=== PATIENT | male | born 1955 | race African-American/Black ===

== ENCOUNTER 2020-05-23 02:15 | Emergency (ER) | payer BC, OTHER ==
[~2020-05-23] VITALS: Ht 188 cm; Wt 119.0 kg
[2020-05-23] MEDS ORDERED: ASPIRIN 81MG TABLET PO ONE (02:30)
[2020-05-23] MEDS ORDERED: NITROGLYCERIN 0.4MG TABLET SL SL PRN (02:30)
[2020-05-23] MEDS ORDERED: CLONIDINE 0.3MG TABLET PO ONE (03:00)
[2020-05-23 03:48] LABS: BASOPHILS % 0.6 % (0.0-2.0); HEMATOCRIT. 51.8 % (42.0-52.0); HEMOGLOBIN. 17.5 g/dL (14.0-18.0); LYMPHOCYTES % 24.9 % (20.0-50.0); MEAN CORPUSCULAR HEMOGLOBIN 32.2 pg (28.0-32.0); MEAN CORPUSCULAR VOLUME 95.2 fL (80.0-94.0); MEAN PLATELET VOLUME 9.1 fl (7.4-10.4); NEUTROPHILS % 63.5 % (40.0-76.0); PLATELET 206 x1000/uL (130-400); RED BLOOD CELL COUNT 5.44 mill/uL (4.7-6.1); RED CELL DISTRIBUTION WIDTH 14.7 % (11.6-14.6)
[2020-05-23 03:50] LABS: CHLORIDE 105 mEq/L (98-107)
[2020-05-23 03:52] LABS: INR 1.1; PROTHROMBIN TIME 11.1 sec (9.6-11.0)
[2020-05-23 04:00] VITALS: BP 141/85
[2020-05-23] MEDS ORDERED: CLON1PAT11 TP (11:43)
[2020-05-24] MEDS ORDERED: CLOP75TA15 PO (09:17)
[2020-05-24] MEDS ORDERED: LIP40 PO (09:17)
[2020-05-24] MEDS ORDERED: ASPI-1160 PO (09:17)
== END 2020-05-23 04:15 | disposition left against medical advice (07) ==
LOC: ER 02:15
DX: I10 Essential (primary) hypertension (principal); I51.7 Cardiomegaly; R07.89 Other chest pain
CPT/HCPCS: 36415; 71045; 80053; 83880; 84484; 85025; 85610; 85730; 93005; 99285; Z7610

== ENCOUNTER 2020-05-23 04:30 | Inpatient (IN) | payer OTHER ==
[2020-05-23] VITALS (9 sets, daily range): BP systolic 117–152; BP diastolic 58–94
[~2020-05-23] VITALS: Ht 190.5 cm; Wt 138.8 kg
[2020-05-23] MEDS ORDERED: ENOXAPARIN 120MG/0.8ML SYR SUBCUT SCH (05:15)
[2020-05-23] MEDS ORDERED: ACETAMINOPHEN 325MG TABLET PO PRN (09:00)
[2020-05-23] MEDS ORDERED: ONDANSETRON HCL 4MG/2ML INJ IV PRN (09:00)
[2020-05-23] MEDS: METOPROLOL TARTRATE 25MG TABLET PO SCH ×2 (10:05→21:03)
[2020-05-23] MEDS: ASPIRIN 81MG TABLET PO SCH (10:05)
[2020-05-23] MEDS ORDERED: LIDOCAINE HCL 1% 20ML VIAL (Pyxis) INJ ONE (10:48)
[2020-05-23] MEDS ORDERED: FENTANYL CITRATE/PF 50MCG/ML 2ML VIAL ONE (10:48)
[2020-05-23] MEDS ORDERED: MIDAZOLAM HCL 2 MG/2 ML VIAL ONE (10:48)
[2020-05-23] MEDS ORDERED: IODIXANOL 320MG/ML 100 ML BOTTLE IV ONE ×2 (10:49→12:27)
[2020-05-23] MEDS ORDERED: CLON1PAT11 TP (11:43)
[2020-05-23] MEDS ORDERED: IOHEXOL-300 100 ML BOTTLE ONE (12:24)
[2020-05-23] MEDS ORDERED: HEPARIN SODIUM 1,000 UNIT/1ML VIAL IV ONE (12:49)
[2020-05-23] MEDS ORDERED: CLOPIDOGREL 75MG TABLET ONE (12:58)
[2020-05-23] MEDS ORDERED: ASPIRIN 325MG TABLET ONE (12:59)
[2020-05-23 13:27] LABS: *BENZODIAZEPINES SCREEN URINE NEGATIVE (NEGATIVE); *COCAINE SCREEN URINE NEGATIVE (NEGATIVE); METHADONE URINE SCREEN NEGATIVE (NEGATIVE)
[2020-05-23 13:28] LABS: *AMPHETAMINES SCREEN URINE NEGATIVE (NEGATIVE); *BARBITURATES SCREEN URINE NEGATIVE (NEGATIVE); CANNABINOID URINE SCREEN NEGATIVE (NEGATIVE); OPIATES URINE SCREEN NEGATIVE (NEGATIVE); PHENCYCLIDINE URINE SCREEN NEGATIVE (NEGATIVE)
[2020-05-23] MEDS ORDERED: SODIUM CHL 0.45% + KCL 20MEQ/L 1,000 ML IV SCH (14:00)
[2020-05-23] MEDS ORDERED: ATORVASTATIN CALCIUM 40MG TABLET PO SCH (21:00)
[2020-05-24] VITALS: BP 145/66
[2020-05-24 02:00] VITALS: BP 121/87
[2020-05-24 04:00] VITALS: BP 127/80
[2020-05-24 06:00] VITALS: BP 139/85
[2020-05-24 06:50] LABS: BASOPHILS % 0.3 % (0.0-2.0); EOSINOPHILS % 2.8 % (0.0-5.0); HEMATOCRIT. 52.3 % (42.0-52.0); HEMOGLOBIN. 17.6 g/dL (14.0-18.0); LYMPHOCYTES % 17.2 % (20.0-50.0); MEAN CORPUSCULAR HEMOGLOBIN 31.8 pg (28.0-32.0); MEAN CORPUSCULAR VOLUME 94.7 fL (80.0-94.0); MEAN PLATELET VOLUME 8.7 fl (7.4-10.4); MONOCYTES % 8.6 % (2.0-8.0); NEUTROPHILS % 71.1 % (40.0-76.0); PLATELET 200 x1000/uL (130-400); RED BLOOD CELL COUNT 5.53 mill/uL (4.7-6.1); RED CELL DISTRIBUTION WIDTH 14.6 % (11.6-14.6)
[2020-05-24 07:02] LABS: CHLORIDE 105 mEq/L (98-107)
[2020-05-24 07:44] VITALS: BP 138/85
[2020-05-24 08:00] VITALS: BP 138/85
[2020-05-24] MEDS: METOPROLOL TARTRATE 25MG TABLET PO SCH (08:32)
[2020-05-24] MEDS: ASPIRIN 81MG TABLET PO SCH (08:32)
[2020-05-24] MEDS ORDERED: CLOPIDOGREL 75MG TABLET PO SCH (09:00)
[2020-05-24] MEDS ORDERED: ASPI-1160 PO (09:17)
[2020-05-24] MEDS ORDERED: LIP40 PO (09:17)
[2020-05-24] MEDS ORDERED: CLOP75TA15 PO (09:17)
== END 2020-05-24 09:00 | disposition home or self-care (01) | DRG 246 ==
LOC: ER 04:30 → EEVIPCON 05:14 → 3WST 05:14 → ENRESERV 05:36
PROVIDERS: ADMIT Internal Medicine; ATTEND Internal Medicine
PROC: 027235Z Dilation of Coronary Artery, Three Arteries with Two Drug-eluting Intraluminal Devices, Percutaneous Approach (ICD-10-PCS; principal; 2020-05-23)
PROC: 4A023N7 Measurement of Cardiac Sampling and Pressure, Left Heart, Percutaneous Approach (ICD-10-PCS; 2020-05-23)
PROC: B2111ZZ Fluoroscopy of Multiple Coronary Arteries using Low Osmolar Contrast (ICD-10-PCS; 2020-05-23)
PROC: B2151ZZ Fluoroscopy of Left Heart using Low Osmolar Contrast (ICD-10-PCS; 2020-05-23)
DX: I21.4 Non-ST elevation (NSTEMI) myocardial infarction (principal); J96.00 Acute respiratory failure, unspecified whether with hypoxia or hypercapnia; E66.9 Obesity, unspecified; I10 Essential (primary) hypertension; E78.5 Hyperlipidemia, unspecified; M19.90 Unspecified osteoarthritis, unspecified site; I25.10 Atherosclerotic heart disease of native coronary artery without angina pectoris; Z68.32 Body mass index [BMI] 32.0-32.9, adult; Z82.49 Family history of ischemic heart disease and other diseases of the circulatory system; Z79.899 Other long term (current) drug therapy
CPT/HCPCS: 36415; 80048; 80061; 80305; 84443; 84484; 85025; 85347; 92928; 92929; 93005; 93306; 93458; 99291; C1725; C1769; C1874; C1887; C1893; J1644; J1650; J2250; J3010; J3480; J3490; Q9967

== ENCOUNTER 2021-06-13 03:11 | Emergency (ER) | payer OTHER, BC ==
[~2021-06-13] VITALS: Ht 190.5 cm; Wt 116.0 kg
[~2021-06-13 03:11] MED LIST: ASPI-1160 PO; CLON1PAT11 TP; CLOP75TA15 PO; LIP40 PO
[2021-06-13] MEDS ORDERED: FUROSEMIDE 40MG/4ML VIAL IVP ONE (04:00)
[2021-06-13 04:13] LABS: BASOPHILS % 0.7 % (0.0-2.0); EOSINOPHILS % 4.8 % (0.0-5.0); HEMATOCRIT. 52.2 % (42.0-52.0); HEMOGLOBIN. 17.8 g/dL (14.0-18.0); LYMPHOCYTES % 12.7 % (20.0-50.0); MEAN CORPUSCULAR HEMOGLOBIN 30.9 pg (28.0-32.0); MEAN CORPUSCULAR VOLUME 90.9 fL (80.0-94.0); MEAN PLATELET VOLUME 8.8 fl (7.4-10.4); MONOCYTES % 6.9 % (2.0-8.0); NEUTROPHILS % 74.9 % (40.0-76.0); PLATELET 278 x1000/uL (130-400); RED BLOOD CELL COUNT 5.74 mill/uL (4.7-6.1); RED CELL DISTRIBUTION WIDTH 15.4 % (11.6-14.6)
[2021-06-13 04:22] LABS: CHLORIDE 110 mEq/L (98-107)
[2021-06-13] MEDS ORDERED: POTA10CA42 MT (05:09)
[2021-06-13] MEDS ORDERED: FURO-151 MT (05:09)
[2021-06-13 05:10] VITALS: BP 133/89
== END 2021-06-13 05:28 | disposition home or self-care (01) ==
LOC: ER 03:11
DX: I50.9 Heart failure, unspecified (principal); Z79.899 Other long term (current) drug therapy
CPT/HCPCS: 36415; 71045; 80053; 83880; 84484; 85025; 93005; 96374; 99285; J1940

== ENCOUNTER 2021-06-22 04:35 | Emergency (ER) | payer OTHER, BC ==
[~2021-06-22] VITALS: Ht 190.5 cm; Wt 117.9 kg
[~2021-06-22 04:35] MED LIST changes: +FURO-151 MT; +POTA10CA42 MT
[2021-06-22 05:00] VITALS: BP 156/90
[2021-06-22] MEDS ORDERED: FUROSEMIDE 40MG/4ML VIAL IVP ONE (05:15)
[2021-06-22 05:18] LABS: BASOPHILS % 1.1 % (0.0-2.0); EOSINOPHILS % 5.3 % (0.0-5.0); HEMATOCRIT. 35.8 % (42.0-52.0); HEMOGLOBIN. 11.7 g/dL (14.0-18.0); LYMPHOCYTES % 29.6 % (20.0-50.0); MEAN CORPUSCULAR HEMOGLOBIN 24.6 pg (28.0-32.0); MEAN CORPUSCULAR VOLUME 74.9 fL (80.0-94.0); MEAN PLATELET VOLUME 7.9 fl (7.4-10.4); MONOCYTES % 11.8 % (2.0-8.0); NEUTROPHILS % 52.2 % (40.0-76.0); PLATELET 221 x1000/uL (130-400); RED BLOOD CELL COUNT 4.77 mill/uL (4.7-6.1); RED CELL DISTRIBUTION WIDTH 15.8 % (11.6-14.6)
[2021-06-22 05:26] LABS: CHLORIDE 111 mEq/L (98-107)
== END 2021-06-22 05:37 | disposition home or self-care (01) ==
LOC: ER 04:38
DX: I50.9 Heart failure, unspecified (principal); I42.9 Cardiomyopathy, unspecified; J45.909 Unspecified asthma, uncomplicated; Z79.82 Long term (current) use of aspirin
CPT/HCPCS: 36415; 80053; 83735; 83880; 84484; 85025; 96374; 99283; J1940

== ENCOUNTER 2021-09-03 11:27 | Emergency (ER) | payer OTHER, BC ==
[~2021-09-03] VITALS: Ht 190.5 cm; Wt 109.0 kg
[2021-09-03] MEDS ORDERED: FUROSEMIDE 40MG/4ML VIAL IVP ONE (11:45)
[2021-09-03 11:58] LABS: BASOPHILS % 0.6 % (0.0-2.0); EOSINOPHILS % 3.4 % (0.0-5.0); HEMATOCRIT. 46.6 % (42.0-52.0); HEMOGLOBIN. 15.4 g/dL (14.0-18.0); MEAN CORPUSCULAR HEMOGLOBIN 29.1 pg (28.0-32.0); MEAN CORPUSCULAR VOLUME 87.9 fL (80.0-94.0); MONOCYTES % 5.2 % (2.0-8.0); NEUTROPHILS % 81.8 % (40.0-76.0); PLATELET 349 x1000/uL (130-400); RED CELL DISTRIBUTION WIDTH 17.5 % (11.6-14.6)
[2021-09-03 12:05] LABS: CHLORIDE 108 mEq/L (98-107)
[2021-09-03 13:40] VITALS: BP 121/73
== END 2021-09-03 14:36 | disposition home or self-care (01) ==
LOC: ER 11:41 → EEVIPCON 11:41 → ER 14:36
DX: I50.9 Heart failure, unspecified (principal); R79.89 Other specified abnormal findings of blood chemistry; N17.9 Acute kidney failure, unspecified; I11.0 Hypertensive heart disease with heart failure; I25.10 Atherosclerotic heart disease of native coronary artery without angina pectoris; Z79.899 Other long term (current) drug therapy
CPT/HCPCS: 36415; 80053; 83880; 84484; 85025; 93005; 96374; 99284; J1940; 71045

== ENCOUNTER 2021-09-25 04:29 | Emergency (ER) | payer OTHER, BC ==
[2021-09-25 06:09] LABS: BASOPHILS % 0.3 % (0.0-2.0); EOSINOPHILS % 4.4 % (0.0-5.0); HEMATOCRIT. 46.9 % (42.0-52.0); LYMPHOCYTES % 18.3 % (20.0-50.0); MEAN CORPUSCULAR HEMOGLOBIN 28.5 pg (28.0-32.0); MEAN CORPUSCULAR VOLUME 88.9 fL (80.0-94.0); MEAN PLATELET VOLUME 8.4 fl (7.4-10.4); MONOCYTES % 5.7 % (2.0-8.0); NEUTROPHILS % 71.3 % (40.0-76.0); PLATELET 387 x1000/uL (130-400); RED BLOOD CELL COUNT 5.28 mill/uL (4.7-6.1)
[2021-09-25] MEDS ORDERED: FUROSEMIDE 40MG/4ML VIAL IVP ONE (06:15)
[2021-09-25 06:45] VITALS: BP 109/63
== END 2021-09-26 06:52 | disposition left against medical advice (07) ==
LOC: ER 04:29
DX: I11.0 Hypertensive heart disease with heart failure (principal); I50.9 Heart failure, unspecified; I25.10 Atherosclerotic heart disease of native coronary artery without angina pectoris; J45.909 Unspecified asthma, uncomplicated; E78.5 Hyperlipidemia, unspecified; Z98.890 Other specified postprocedural states; Z79.899 Other long term (current) drug therapy
CPT/HCPCS: 36415; 71045; 80048; 83880; 84484; 85025; 96374; 99284; J1940; Z7610

== ENCOUNTER 2021-10-01 07:47 | Emergency (ER) | payer OTHER, BC ==
[~2021-10-01] VITALS: Ht 190.5 cm; Wt 242.0 kg
[2021-10-01] MEDS ORDERED: FUROSEMIDE 40MG/4ML VIAL IV ONE (08:15)
[2021-10-01 08:32] LABS: BASOPHILS % 0.5 % (0.0-2.0); EOSINOPHILS % 3.1 % (0.0-5.0); HEMATOCRIT. 45.3 % (42.0-52.0); HEMOGLOBIN. 15.1 g/dL (14.0-18.0); LYMPHOCYTES % 15.4 % (20.0-50.0); MEAN CORPUSCULAR HEMOGLOBIN 29.2 pg (28.0-32.0); MEAN CORPUSCULAR VOLUME 87.3 fL (80.0-94.0); MEAN PLATELET VOLUME 9.2 fl (7.4-10.4); MONOCYTES % 7.4 % (2.0-8.0); NEUTROPHILS % 73.6 % (40.0-76.0); PLATELET 361 x1000/uL (130-400); RED BLOOD CELL COUNT 5.18 mill/uL (4.7-6.1); RED CELL DISTRIBUTION WIDTH 17.9 % (11.6-14.6)
[2021-10-01 08:41] VITALS: BP 115/77
== END 2021-10-01 08:43 | disposition left against medical advice (07) ==
LOC: ER 07:57
DX: R68.89 Other general symptoms and signs (principal); I11.0 Hypertensive heart disease with heart failure; I50.9 Heart failure, unspecified; I25.10 Atherosclerotic heart disease of native coronary artery without angina pectoris; J45.909 Unspecified asthma, uncomplicated; Z79.899 Other long term (current) drug therapy
CPT/HCPCS: 36415; 85025; 96374; 99283; J1940

== ENCOUNTER 2021-12-06 03:11 | Emergency (ER) | payer OTHER, BC ==
[~2021-12-06] VITALS: Ht 190.5 cm; Wt 109.0 kg
[2021-12-06 04:55] VITALS: BP 144/98
[2021-12-06 05:21] LABS: BASOPHILS % 0.9 % (0.0-2.0); EOSINOPHILS % 7.2 % (0.0-5.0); HEMATOCRIT. 51.5 % (42.0-52.0); HEMOGLOBIN. 16.7 g/dL (14.0-18.0); LYMPHOCYTES % 14.9 % (20.0-50.0); MEAN CORPUSCULAR HEMOGLOBIN 28.1 pg (28.0-32.0); MEAN CORPUSCULAR VOLUME 86.7 fL (80.0-94.0); MEAN PLATELET VOLUME 9.1 fl (7.4-10.4); MONOCYTES % 8.9 % (2.0-8.0); NEUTROPHILS % 68.1 % (40.0-76.0); PLATELET 274 x1000/uL (130-400); RED BLOOD CELL COUNT 5.94 mill/uL (4.7-6.1); RED CELL DISTRIBUTION WIDTH 17.1 % (11.6-14.6)
[2021-12-06 05:31] LABS: CHLORIDE 107 mEq/L (98-107)
[2021-12-06] MEDS ORDERED: FUROSEMIDE 100MG/10ML VIAL IVP ONE (05:45)
[2021-12-06] MEDS ORDERED: FURO-151 MT (05:51)
== END 2021-12-06 05:40 | disposition home or self-care (01) ==
LOC: ER 03:11
DX: I11.0 Hypertensive heart disease with heart failure (principal); I50.9 Heart failure, unspecified; R06.02 Shortness of breath; Z98.62 Peripheral vascular angioplasty status
CPT/HCPCS: 36415; 71045; 80053; 83880; 84484; 85025; 93005; 96374; 99285; J1940

== ENCOUNTER 2022-10-02 18:17 | Inpatient (IN) | payer OTHER, BC ==
[~2022-10-02] VITALS: Ht 190.5 cm; Wt 123.4 kg
[2022-10-02 18:49] LABS: BASOPHILS % 1.1 % (0.0-2.0); EOSINOPHILS % 3.8 % (0.0-5.0); HEMATOCRIT. 38.9 % (42.0-52.0); HEMOGLOBIN. 12.6 g/dL (14.0-18.0); LYMPHOCYTES % 14.3 % (20.0-50.0); MEAN CORPUSCULAR HEMOGLOBIN 24.1 pg (28.0-32.0); MEAN PLATELET VOLUME 8.9 fl (7.4-10.4); MONOCYTES % 8.1 % (2.0-8.0); NEUTROPHILS % 72.7 % (40.0-76.0); PLATELET 452 x1000/uL (130-400); RED BLOOD CELL COUNT 5.25 mill/uL (4.7-6.1)
[2022-10-02 18:55] LABS: CHLORIDE 100 mEq/L (98-107)
[2022-10-02 19:16] LABS: PLATELET ESTIMATE INCREASED
[2022-10-02] MEDS ORDERED: FUROSEMIDE 40MG/4ML VIAL IVP ONE (20:30)
[2022-10-02] MEDS ORDERED: ASPIRIN 325MG TABLET PO ONE (21:00)
[2022-10-03 02:45] VITALS: BP 113/78
[2022-10-03 04:00] VITALS: BP 123/76
[2022-10-03] MEDS ORDERED: ACETAMINOPHEN 325MG TABLET PO PRN (04:30)
[2022-10-03] MEDS ORDERED: HYDROCODONE/ACETAMINOPHEN 5/325MG TABLET PO PRN (04:30)
[2022-10-03] MEDS ORDERED: ONDANSETRON HCL 4MG/2ML INJ IV PRN (04:30)
[2022-10-03] MEDS ORDERED: CLONIDINE 0.1MG TABLET PO PRN (04:30)
[2022-10-03 08:00] VITALS: BP 114/78
[2022-10-03] MEDS ORDERED: ASPIRIN 81MG TABLET PO SCH (09:00)
[2022-10-03 10:22] LABS: BASOPHILS % 0.8 % (0.0-2.0); EOSINOPHILS % 5.3 % (0.0-5.0); HEMATOCRIT. 37.3 % (42.0-52.0); HEMOGLOBIN. 12.1 g/dL (14.0-18.0); LYMPHOCYTES % 14.6 % (20.0-50.0); MEAN CORPUSCULAR HEMOGLOBIN 24.3 pg (28.0-32.0); MEAN CORPUSCULAR VOLUME 74.7 fL (80.0-94.0); MEAN PLATELET VOLUME 9.4 fl (7.4-10.4); MONOCYTES % 8.4 % (2.0-8.0); NEUTROPHILS % 70.9 % (40.0-76.0); PLATELET 433 x1000/uL (130-400); RED BLOOD CELL COUNT 4.99 mill/uL (4.7-6.1); RED CELL DISTRIBUTION WIDTH 21.7 % (11.6-14.6)
[2022-10-03 11:16] LABS: CREATINE KINASE MB FRACTION 5.2 ng/mL (0.5-3.6)
[2022-10-03 12:00] VITALS: BP 124/86
[2022-10-03] MEDS ORDERED: FUROSEMIDE 40MG/4ML VIAL IVP SCH (12:30)
[2022-10-03] MEDS ORDERED: CLOPIDOGREL 75MG TABLET PO SCH (12:30)
[2022-10-03 16:37] LABS: CLARITY URINE CLEAR (CLEAR); COLOR URINE YELLOW (YELLOW); KETONES URINE NEGATIVE (NEGATIVE); LEUKOCYTE ESTERASE URINE 1+ (NEGATIVE); NITRITE URINE NEGATIVE (NEGATIVE); OCCULT BLOOD URINE 2+ (NEGATIVE); PH URINE 7.5 (4.5-8.0); PROTEIN URINE 1+ (NEGATIVE); SPECIFIC GRAVITY URINE 1.008 (1.005-1.030)
[2022-10-03 17:06] LABS: *AMPHETAMINES SCREEN URINE NEGATIVE (NEGATIVE); *BARBITURATES SCREEN URINE NEGATIVE (NEGATIVE); *BENZODIAZEPINES SCREEN URINE NEGATIVE (NEGATIVE); *COCAINE SCREEN URINE NEGATIVE (NEGATIVE); CANNABINOID URINE SCREEN NEGATIVE (NEGATIVE); METHADONE URINE SCREEN NEGATIVE (NEGATIVE); OPIATES URINE SCREEN NEGATIVE (NEGATIVE); PHENCYCLIDINE URINE SCREEN NEGATIVE (NEGATIVE)
[2022-10-03] MEDS ORDERED: ATORVASTATIN CALCIUM 40MG TABLET PO SCH (21:00)
[2022-10-04 16:48] LABS: HAPTOGLOBIN 334 mg/dL (30-200); TOTAL IRON BINDING CAPACITY 409 ug/dL (250-450)
[2022-10-04 16:58] LABS: PROSTRATE SPECIFIC AG TOTAL 3.76 ng/mL (0.0-4.0)
== END 2022-10-03 16:35 | disposition left against medical advice (07) | DRG 280 ==
LOC: EEVIPCON 18:17 → ER 18:17 → MICUSO 22:13 → EDBEDREQTM 22:19 → EDBEDREQ 22:19 → 8WST 10-03 01:04
PROVIDERS: ADMIT Internal Medicine; ATTEND Internal Medicine
DX: I13.0 Hypertensive heart and chronic kidney disease with heart failure and stage 1 through stage 4 chronic kidney disease, or unspecified chronic kidney disease (principal); I21.A1 Myocardial infarction type 2; I50.43 Acute on chronic combined systolic (congestive) and diastolic (congestive) heart failure; N17.9 Acute kidney failure, unspecified; M79.89 Other specified soft tissue disorders; E78.5 Hyperlipidemia, unspecified; R74.01 Elevation of levels of liver transaminase levels; I25.10 Atherosclerotic heart disease of native coronary artery without angina pectoris; G89.29 Other chronic pain; M54.50 Low back pain, unspecified; Z20.822 Contact with and (suspected) exposure to COVID-19; N18.30 Chronic kidney disease, stage 3 unspecified; Z79.82 Long term (current) use of aspirin; Z79.899 Other long term (current) drug therapy; Z79.84 Long term (current) use of oral hypoglycemic drugs; Z82.49 Family history of ischemic heart disease and other diseases of the circulatory system; Z95.5 Presence of coronary angioplasty implant and graft; Z86.73 Personal history of transient ischemic attack (TIA), and cerebral infarction without residual deficits
CPT/HCPCS: 36415; 71045; 80048; 80053; 80305; 81003; 82550; 82553; 82570; 82728; 83010; 83540; 83550; 83880; 84153; 84156; 84484; 85025; 87426; 93005; 99291; J1940; G0103

== ENCOUNTER 2023-12-18 16:25 | Emergency (ER) | payer OTHER, BC ==
[~2023-12-18] VITALS: Ht 190.5 cm; Wt 117.0 kg
[~2023-12-18 16:25] MED LIST changes: -POTA10CA42 MT; +POTA10CA83 MT
[2023-12-18 16:27] VITALS: O2SAT 100
[2023-12-18] MEDS: FUROSEMIDE 40MG/4ML VIAL IVP ONE (16:44)
[2023-12-18 16:52] VITALS: BP 115/75; PULSE 82; RESP 18; TEMP 98.4
== END 2023-12-18 17:07 | disposition left against medical advice (07) ==
LOC: ER 16:25
DX: I50.9 Heart failure, unspecified (principal); I11.0 Hypertensive heart disease with heart failure; I25.2 Old myocardial infarction; Z98.890 Other specified postprocedural states; Z96.653 Presence of artificial knee joint, bilateral
CPT/HCPCS: 99283; 96374; J1940

== ENCOUNTER 2023-12-27 15:15 | Inpatient (IN) | payer OTHER, BC ==
[~2023-12-27] VITALS: Ht 190.5 cm; Wt 118.6 kg
[2023-12-27 16:00] LABS: BASOPHILS % 0.6 % (0.0-2.0); EOSINOPHILS % 6.7 % (0.0-5.0); HEMATOCRIT. 36.5 % (42.0-52.0); HEMOGLOBIN. 11.9 g/dL (14.0-18.0); LYMPHOCYTES % 12.4 % (20.0-50.0); MEAN CORPUSCULAR HEMOGLOBIN 28.1 pg (28.0-32.0); MEAN CORPUSCULAR HGB CONC 32.7 g/dL (31.0-37.0); MEAN CORPUSCULAR VOLUME 86.1 fL (80.0-94.0); MEAN PLATELET VOLUME 8.3 fl (7.4-10.4); MONOCYTES % 6.5 % (2.0-8.0); NEUTROPHILS % 73.8 % (40.0-76.0); PLATELET 350 x1000/uL (130-400); RED BLOOD CELL COUNT 4.24 mill/uL (4.7-6.1); RED CELL DISTRIBUTION WIDTH 18.2 % (11.6-14.6)
[2023-12-27 16:09] LABS: ALANINE AMINOTRANSFERASE 34 IU/L (10-49); ALBUMIN 3.7 g/dL (3.2-4.8); ASPARTATE AMINOTRANSFERASE 124 IU/L (<34); BILIRUBIN TOTAL 0.5 mg/dL (0.1-1.0); CALCIUM 8.4 mg/dL (8.7-10.4); CARBON DIOXIDE 27 mEq/L (21-32); CHLORIDE 109 mEq/L (98-107); CREATININE 1.4 mg/dL (0.6-1.3); GLUCOSE 112 mg/dL (70-105); POTASSIUM 3.3 mEq/L (3.5-5.1); PROTEIN TOTAL 6.4 g/dL (6.0-8.3); SODIUM 143 mEq/L (136-145); UREA NITROGEN BLOOD 17 mg/dL (9-23)
[2023-12-27 16:11] LABS: TROPONIN I HIGH SENSITIVITY 939 ng/L (3.0-53)
[2023-12-27] MEDS ORDERED: ASPIRIN 325MG EC TABLET PO NR (16:30)
[2023-12-27] MEDS ORDERED: ENOXAPARIN 120MG/0.8ML SYR SUBCUT NR (16:30)
[2023-12-27 16:33] LABS: INR 1.1; PROTHROMBIN TIME 11.8 sec (9.6-11.0)
[2023-12-27] MEDS: ENOXAPARIN 120MG/0.8ML SYR SUBCUT SCH (16:56)
[2023-12-27] MEDS ORDERED: HEPARIN 25,000 UNITS PREMIX 250 ML IV SCH (17:00)
[2023-12-27] MEDS: ASPIRIN 81MG TABLET PO ONE (17:09)
[2023-12-27] MEDS ORDERED: HEPARIN BOLUS PRN aPTT <30 IV (17:45)
[2023-12-27] MEDS: HEPARIN 60 UNITS/KG BOLUS IV NR (18:37)
[2023-12-27] MEDS: HEPARIN 25,000 UNITS PREMIX 250 ML IV SCH (18:37)
[2023-12-27] MEDS: FUROSEMIDE 40MG/4ML VIAL IVP ONE (19:40)
[2023-12-28 03:40] VITALS: BP 135/91; PULSE 74; RESP 21; TEMP 98.3
[2023-12-28 03:43] VITALS: BP 135/91; PULSE 82; RESP 21; TEMP 98.3
[2023-12-28] MEDS: HEPARIN BOLUS PRN aPTT 30-44 IV (04:11)
[2023-12-28 07:14] LABS: BASOPHILS % 0.9 % (0.0-2.0); EOSINOPHILS % 11.1 % (0.0-5.0); HEMATOCRIT. 36.7 % (42.0-52.0); LYMPHOCYTES % 24.6 % (20.0-50.0); MEAN CORPUSCULAR HEMOGLOBIN 27.6 pg (28.0-32.0); MEAN CORPUSCULAR HGB CONC 32.7 g/dL (31.0-37.0); MEAN CORPUSCULAR VOLUME 84.4 fL (80.0-94.0); MEAN PLATELET VOLUME 8.4 fl (7.4-10.4); NEUTROPHILS % 55.4 % (40.0-76.0); PLATELET 317 x1000/uL (130-400); RED BLOOD CELL COUNT 4.35 mill/uL (4.7-6.1); RED CELL DISTRIBUTION WIDTH 18.7 % (11.6-14.6); WHITE BLOOD COUNT 7.5 x1000/uL (4.5-11.0)
[2023-12-28 08:00] VITALS: BP 130/95; PULSE 84; RESP 20; TEMP 98.4
[2023-12-28 08:02] LABS: CLARITY URINE CLEAR (CLEAR); COLOR URINE YELLOW (YELLOW); GLUCOSE URINE 3+ (NEGATIVE); KETONES URINE NEGATIVE (NEGATIVE); LEUKOCYTE ESTERASE URINE NEGATIVE (NEGATIVE); NITRITE URINE NEGATIVE (NEGATIVE); OCCULT BLOOD URINE TRACE (NEGATIVE); PH URINE 6.5 (4.5-8.0); PROTEIN URINE 1+ (NEGATIVE); SPECIFIC GRAVITY URINE 1.028 (1.005-1.030)
[2023-12-28 08:16] LABS: TROPONIN I HIGH SENSITIVITY 871 ng/L (3.0-53)
[2023-12-28 08:24] LABS: BACTERIA URINE FEW; SQUAMOUS EPITHELIAL CELL URINE NONE SEEN /lpf (RARE/1+); YEAST URINE NONE SEEN
[2023-12-28] MEDS: ASPIRIN 81MG TABLET PO SCH (08:26)
[2023-12-28] MEDS: TICAGRELOR 90 MG TABLET PO SCH (08:26)
[2023-12-28] MEDS: ISOSORBIDE MONONITRATE 30MG TABLET SR 24HR PO SCH (08:26)
[2023-12-28] MEDS: FUROSEMIDE 40MG TABLET PO SCH (08:27)
[2023-12-28] MEDS: METOPROLOL SUCCINATE 50MG ER TABLET PO SCH (08:27)
[2023-12-28 08:35] LABS: ALANINE AMINOTRANSFERASE 27 IU/L (10-49); ALBUMIN 3.4 g/dL (3.2-4.8); ASPARTATE AMINOTRANSFERASE 86 IU/L (<34); BILIRUBIN TOTAL 0.5 mg/dL (0.1-1.0); CARBON DIOXIDE 28 mEq/L (21-32); CHLORIDE 109 mEq/L (98-107); CREATINE KINASE 1621 IU/L (46-171); CREATINE KINASE MB FRACTION 2.3 ng/mL (0.5-3.6); CREATININE 1.3 mg/dL (0.6-1.3); GLUCOSE 95 mg/dL (70-105); POTASSIUM 3.3 mEq/L (3.5-5.1); PROTEIN TOTAL 6.1 g/dL (6.0-8.3); SODIUM 144 mEq/L (136-145); UREA NITROGEN BLOOD 19 mg/dL (9-23)
[2023-12-28] MEDS ORDERED: NITR0.4T49 SL (08:50)
[2023-12-28] MEDS ORDERED: TICA90TA PO (08:50)
[2023-12-28] MEDS ORDERED: METO-396 PO (08:50)
[2023-12-28] MEDS ORDERED: ISOS30TA91 PO (08:50)
[2023-12-28] MEDS ORDERED: DAPA5TAB PO (08:50)
[2023-12-28] MEDS ORDERED: SACU1TAB PO (08:50)
[2023-12-28] MEDS ORDERED: ALFU10TA9 PO (08:50)
[2023-12-28] MEDS ORDERED: FARXIGA 5 MG PO SCH (09:00)
[2023-12-28] MEDS ORDERED: ENTRESTO PO SCH (09:00)
[2023-12-28 09:51] LABS: *AMPHETAMINES SCREEN URINE NEGATIVE (NEGATIVE); *BARBITURATES SCREEN URINE NEGATIVE (NEGATIVE); *BENZODIAZEPINES SCREEN URINE NEGATIVE (NEGATIVE); *COCAINE SCREEN URINE NEGATIVE (NEGATIVE); CANNABINOID URINE SCREEN NEGATIVE (NEGATIVE); ECSTASY MDMA SCREEN URINE NEGATIVE (NEGATIVE); METHADONE URINE SCREEN Neg (NEGATIVE); OPIATES URINE SCREEN NEGATIVE (NEGATIVE); PHENCYCLIDINE URINE SCREEN NEGATIVE (NEGATIVE)
[2023-12-28 12:00] VITALS: BP 105/76; PULSE 74; RESP 18; TEMP 98
[2023-12-28 16:00] VITALS: BP 123/86; PULSE 81; RESP 17; TEMP 98.5
[2023-12-28 16:21] LABS: CREATININE URINE RANDOM 33.7 mg/dL
[2023-12-28] MEDS: EMPAGLIFLOZIN 10MG TABLET PO SCH (18:05)
[2023-12-28] MEDS: SACUBITRIL/VALSARTAN 24MG/26MG TABLET PO SCH (18:05)
[2023-12-28 20:00] VITALS: BP 119/75; PULSE 75; RESP 21; TEMP 97.6
[2023-12-28] MEDS: ATORVASTATIN CALCIUM 40MG TABLET PO SCH (20:53)
[2023-12-29 00:30] VITALS: BP 124/82; PULSE 72; RESP 15; TEMP 98.6
[2023-12-29] MEDS: ZOLPIDEM TARTRATE 5MG TABLET PO PRN (00:46)
[2023-12-29 05:29] VITALS: BP 114/89; PULSE 74; RESP 25; TEMP 97.6
[2023-12-29 07:20] LABS: BASOPHILS % 0.7 % (0.0-2.0); EOSINOPHILS % 8.6 % (0.0-5.0); HEMATOCRIT. 39.3 % (42.0-52.0); HEMOGLOBIN. 12.8 g/dL (14.0-18.0); LYMPHOCYTES % 17.4 % (20.0-50.0); MEAN CORPUSCULAR HEMOGLOBIN 27.7 pg (28.0-32.0); MEAN CORPUSCULAR HGB CONC 32.5 g/dL (31.0-37.0); MEAN CORPUSCULAR VOLUME 85.1 fL (80.0-94.0); MEAN PLATELET VOLUME 8.8 fl (7.4-10.4); MONOCYTES % 7.3 % (2.0-8.0); PLATELET 315 x1000/uL (130-400); RED BLOOD CELL COUNT 4.62 mill/uL (4.7-6.1); RED CELL DISTRIBUTION WIDTH 18.7 % (11.6-14.6); WHITE BLOOD COUNT 7.7 x1000/uL (4.5-11.0)
[2023-12-29 07:32] LABS: CALCIUM 8.6 mg/dL (8.7-10.4); CARBON DIOXIDE 28 mEq/L (21-32); CHLORIDE 106 mEq/L (98-107); CREATININE 1.3 mg/dL (0.6-1.3); GLUCOSE 76 mg/dL (70-105); PHOSPHORUS 2.6 mg/dL (2.5-4.9); POTASSIUM 3.3 mEq/L (3.5-5.1); SODIUM 143 mEq/L (136-145); UREA NITROGEN BLOOD 21 mg/dL (9-23)
[2023-12-29 08:00] VITALS: BP 119/88; PULSE 74; RESP 22; TEMP 98
[2023-12-29] MEDS: POTASSIUM CHLORIDE 20MEQ/PACKET PO NR (08:38)
[2023-12-29 13:26] VITALS: BP 114/89; PULSE 74; TEMP 98; O2SAT 97
[2023-12-29] MEDS: FUROSEMIDE 40MG/4ML VIAL IVP NR (13:46)
[2023-12-31 13:12] LABS: *CREATININE RANDOM URINE 36.1 mg/dL (Not Estab.); MICROALBUMIN RANDOM URINE 29.6 ug/mL (Not Estab.)
== END 2023-12-29 14:06 | disposition home or self-care (01) | DRG 280 ==
LOC: ER 15:15 → EDBEDREQSVC 12-28 02:17 → 3WST 12-28 03:43
PROVIDERS: ADMIT Internal Medicine; ATTEND Internal Medicine
DX: I21.4 Non-ST elevation (NSTEMI) myocardial infarction (principal); I50.43 Acute on chronic combined systolic (congestive) and diastolic (congestive) heart failure; I13.0 Hypertensive heart and chronic kidney disease with heart failure and stage 1 through stage 4 chronic kidney disease, or unspecified chronic kidney disease; M62.82 Rhabdomyolysis; I42.0 Dilated cardiomyopathy; I25.10 Atherosclerotic heart disease of native coronary artery without angina pectoris; E78.5 Hyperlipidemia, unspecified; N28.1 Cyst of kidney, acquired; N18.2 Chronic kidney disease, stage 2 (mild); I34.0 Nonrheumatic mitral (valve) insufficiency; G89.29 Other chronic pain; Z96.652 Presence of left artificial knee joint; Z86.73 Personal history of transient ischemic attack (TIA), and cerebral infarction without residual deficits; Z82.49 Family history of ischemic heart disease and other diseases of the circulatory system; Z79.899 Other long term (current) drug therapy; Z79.82 Long term (current) use of aspirin; Z79.02 Long term (current) use of antithrombotics/antiplatelets; Z95.5 Presence of coronary angioplasty implant and graft
CPT/HCPCS: 36415; 71045; 71275; 76770; 80048; 80053; 80305; 81003; 82043; 82088; 82550; 82553; 82570; 83735; 83880; 83935; 84100; 84244; 84300; 84484; 85025; 93005; 93306; 93970; 99291; J1644; J1650; J1940; J8499

== ENCOUNTER 2024-03-03 07:35 | Emergency (ER) | payer OTHER, BC ==
[~2024-03-03] VITALS: Ht 185.4 cm; Wt 244.0 kg
[~2024-03-03 07:35] MED LIST changes: +ALFU10TA9 PO; +DAPA5TAB PO; +ISOS30TA91 PO; +METO-396 PO; +NITR0.4T49 SL; +SACU1TAB PO; +TICA90TA PO
[2024-03-03 07:38] VITALS: O2SAT 98
[2024-03-03 08:00] VITALS: BP 119/82; PULSE 70; RESP 18; TEMP 98
[2024-03-03] MEDS: FUROSEMIDE 40MG/4ML VIAL IVP ONE (08:08)
[2024-03-03 08:15] LABS: BASOPHILS % 0.8 % (0.0-2.0); EOSINOPHILS % 3.9 % (0.0-5.0); HEMATOCRIT. 47.1 % (42.0-52.0); HEMOGLOBIN. 15.3 g/dL (14.0-18.0); LYMPHOCYTES % 18.9 % (20.0-50.0); MEAN CORPUSCULAR HEMOGLOBIN 27.7 pg (28.0-32.0); MEAN CORPUSCULAR HGB CONC 32.5 g/dL (31.0-37.0); MEAN CORPUSCULAR VOLUME 85.2 fL (80.0-94.0); MEAN PLATELET VOLUME 8.1 fl (7.4-10.4); MONOCYTES % 8.3 % (2.0-8.0); NEUTROPHILS % 68.1 % (40.0-76.0); PLATELET 219 x1000/uL (130-400); RED BLOOD CELL COUNT 5.53 mill/uL (4.7-6.1); RED CELL DISTRIBUTION WIDTH 20.8 % (11.6-14.6); WHITE BLOOD COUNT 8.4 x1000/uL (4.5-11.0)
[2024-03-03 08:23] LABS: CHLORIDE 106 mEq/L (98-107); POTASSIUM 4.2 mEq/L (3.5-5.1); SODIUM 141 mEq/L (136-145)
[2024-03-03 08:24] LABS: CALCIUM 9.6 mg/dL (8.7-10.4); CARBON DIOXIDE 30 mEq/L (21-32)
[2024-03-03 08:29] LABS: CREATININE 1.5 mg/dL (0.6-1.3); GLUCOSE 105 mg/dL (70-105); UREA NITROGEN BLOOD 22 mg/dL (9-23)
[2024-03-03 08:57] LABS: TROPONIN I HIGH SENSITIVITY 204 ng/L (3.0-53)
== END 2024-03-03 08:25 | disposition left against medical advice (07) ==
LOC: ER 07:35
DX: R79.89 Other specified abnormal findings of blood chemistry (principal); I50.9 Heart failure, unspecified; N18.6 End stage renal disease
CPT/HCPCS: 80048; 83880; 85025; 84484; 36415; 71045; 93005; 96374; 99285; J1940; Z7610 ×3

== ENCOUNTER 2024-08-19 10:46 | Emergency (ER) | payer BC, OTHER ==
[~2024-08-19 10:46] MED LIST changes: +ALFU10TA46 PO; -ALFU10TA9 PO; -POTA10CA83 MT; +POTA10CA93 MT
[2024-08-19 15:21] LABS: CHLORIDE 108 mEq/L (98-107); SODIUM 142 mEq/L (136-145)
[2024-08-19 15:22] LABS: BASOPHILS % 0.6 % (0.0-2.0); CALCIUM 9.4 mg/dL (8.7-10.4); CARBON DIOXIDE 28 mEq/L (21-32); EOSINOPHILS % 3.4 % (0.0-5.0); HEMATOCRIT. 48.9 % (42.0-52.0); HEMOGLOBIN. 16.2 g/dL (14.0-18.0); LYMPHOCYTES % 16.5 % (20.0-50.0); MEAN CORPUSCULAR HEMOGLOBIN 31.3 pg (28.0-32.0); MEAN CORPUSCULAR HGB CONC 33.1 g/dL (31.0-37.0); MEAN CORPUSCULAR VOLUME 94.7 fL (80.0-94.0); MEAN PLATELET VOLUME 8.7 fl (7.4-10.4); MONOCYTES % 7.5 % (2.0-8.0); PLATELET 239 x1000/uL (130-400); RED BLOOD CELL COUNT 5.17 mill/uL (4.7-6.1); RED CELL DISTRIBUTION WIDTH 15.5 % (11.6-14.6); WHITE BLOOD COUNT 7.2 x1000/uL (4.5-11.0)
[2024-08-19 15:27] LABS: CREATININE 1.2 mg/dL (0.6-1.3); GLUCOSE 126 mg/dL (70-105); UREA NITROGEN BLOOD 18 mg/dL (9-23)
[2024-08-19] MEDS: FUROSEMIDE 40MG/4ML VIAL IVP NR (15:32)
[2024-08-19 15:38] LABS: TROPONIN I HIGH SENSITIVITY 250 ng/L (3.0-53)
[2024-08-19 16:20] VITALS: BP 132/96; PULSE 83; RESP 18; TEMP 36.78072; O2SAT 99
== END 2024-08-19 16:22 | disposition home or self-care (01) ==
LOC: EDSTATUS 10:46 → ER 11:25 → CANBEDREQ 16:13 → ER 16:22
DX: R06.02 Shortness of breath (principal); I50.9 Heart failure, unspecified; I25.10 Atherosclerotic heart disease of native coronary artery without angina pectoris; Z79.899 Other long term (current) drug therapy
CPT/HCPCS: 80048; 83880; 85025; 84484; 36415; 71045; 93005; 96374; 99285; J1940; Z7610 ×4

== ENCOUNTER 2024-11-26 09:13 | Emergency (ER) | payer BC ==
[~2024-11-26] VITALS: Ht 182.9 cm; Wt 90.0 kg
[2024-11-26 09:17] VITALS: O2SAT 99
[2024-11-26] MEDS: FUROSEMIDE 40MG/4ML VIAL IVP ONE (09:57)
[2024-11-26 10:25] LABS: CLARITY URINE CLEAR (CLEAR); COLOR URINE YELLOW (YELLOW); GLUCOSE URINE NEGATIVE (NEGATIVE); KETONES URINE NEGATIVE (NEGATIVE); LEUKOCYTE ESTERASE URINE TRACE (NEGATIVE); NITRITE URINE NEGATIVE (NEGATIVE); OCCULT BLOOD URINE 2+ (NEGATIVE); PH URINE 6.5 (4.5-8.0); PROTEIN URINE 2+ (NEGATIVE); SPECIFIC GRAVITY URINE 1.013 (1.005-1.030)
[2024-11-26 10:35] LABS: TROPONIN I HIGH SENSITIVITY 633 ng/L (3.0-53)
[2024-11-26 10:46] LABS: BACTERIA URINE FEW; SQUAMOUS EPITHELIAL CELL URINE RARE /lpf (RARE/1+); YEAST URINE NONE SEEN
[2024-11-26 11:02] LABS: POTASSIUM 5.5 mEq/L (3.5-5.1)
[2024-11-26 11:03] LABS: CALCIUM 9.4 mg/dL (8.7-10.4)
[2024-11-26 11:12] LABS: CREATININE 1.7 mg/dL (0.6-1.3)
[2024-11-26 11:14] LABS: BASOPHILS % 0.2 % (0.0-2.0); EOSINOPHILS % 3.9 % (0.0-5.0); HEMATOCRIT. 52.2 % (42.0-52.0); HEMOGLOBIN. 16.7 g/dL (14.0-18.0); LYMPHOCYTES % 14.5 % (20.0-50.0); MEAN CORPUSCULAR HEMOGLOBIN 28.2 pg (28.0-32.0); MEAN CORPUSCULAR HGB CONC 31.9 g/dL (31.0-37.0); MEAN CORPUSCULAR VOLUME 88.2 fL (80.0-94.0); MEAN PLATELET VOLUME 9.2 fl (7.4-10.4); MONOCYTES % 7.8 % (2.0-8.0); NEUTROPHILS % 73.6 % (40.0-76.0); PLATELET 247 x1000/uL (130-400); RED BLOOD CELL COUNT 5.92 mill/uL (4.7-6.1); RED CELL DISTRIBUTION WIDTH 17.8 % (11.6-14.6); WHITE BLOOD COUNT 9.4 x1000/uL (4.5-11.0)
[2024-11-26 11:35] VITALS: BP 142/93; PULSE 99; RESP 18; TEMP 36.7; O2SAT 98
[2024-11-26 12:28] LABS: INR 1.1; PROTHROMBIN TIME 11.6 sec (9.6-11.0)
== END 2024-11-26 11:20 | disposition left against medical advice (07) ==
LOC: ER 09:13
DX: I21.4 Non-ST elevation (NSTEMI) myocardial infarction (principal); N17.9 Acute kidney failure, unspecified; I50.9 Heart failure, unspecified; Z79.02 Long term (current) use of antithrombotics/antiplatelets; Z79.82 Long term (current) use of aspirin; Z79.84 Long term (current) use of oral hypoglycemic drugs; Z79.899 Other long term (current) drug therapy
CPT/HCPCS: 80048; 81003; 85025; 85610; 87086; 84484; 36415; 71045; 93005; 96374; 99285; J1940; Z7610; A4606

== ENCOUNTER 2024-12-18 13:15 | Emergency (ER) | payer BC ==
[~2024-12-18] VITALS: Ht 188 cm; Wt 125.0 kg
[2024-12-18 13:29] VITALS: O2SAT 99
[2024-12-18] MEDS: FUROSEMIDE 100MG/10ML VIAL IVP ONE (13:44)
[2024-12-18 13:49] LABS: BASOPHILS % 0.4 % (0.0-2.0); DIFFERENTIAL COMMENT 0; EOSINOPHILS % 0.4 % (0.0-5.0); HEMATOCRIT. 48.4 % (42.0-52.0); HEMOGLOBIN. 15.5 g/dL (14.0-18.0); MEAN CORPUSCULAR HEMOGLOBIN 27.9 pg (28.0-32.0); MEAN CORPUSCULAR VOLUME 87.1 fL (80.0-94.0); MEAN PLATELET VOLUME 9.3 fl (7.4-10.4); MONOCYTES % 6.5 % (2.0-8.0); NEUTROPHILS % 77.7 % (40.0-76.0); PLATELET 281 x1000/uL (130-400); RED BLOOD CELL COUNT 5.56 mill/uL (4.7-6.1); RED CELL DISTRIBUTION WIDTH 18.1 % (11.6-14.6); WHITE BLOOD COUNT 12.3 x1000/uL (4.5-11.0)
[2024-12-18 14:03] LABS: CHLORIDE 106 mEq/L (98-107); POTASSIUM 4.6 mEq/L (3.5-5.1); SODIUM 141 mEq/L (136-145)
[2024-12-18 14:04] LABS: CALCIUM 8.8 mg/dL (8.7-10.4); CARBON DIOXIDE 26 mEq/L (21-32)
[2024-12-18 14:06] VITALS: PULSE 91; RESP 24
[2024-12-18] MEDS: ALBUTEROL (0.083%) 2.5MG/3ML NEB HHN ONE (14:06)
[2024-12-18 14:09] LABS: CREATININE 1.6 mg/dL (0.6-1.3); GLUCOSE 108 mg/dL (70-105); UREA NITROGEN BLOOD 22 mg/dL (9-23)
[2024-12-18 14:15] LABS: TROPONIN I HIGH SENSITIVITY 1442 ng/L (3.0-53)
[2024-12-18 14:41] VITALS: BP 121/78; PULSE 79; RESP 18; TEMP 36.9; O2SAT 100
== END 2024-12-18 14:42 | disposition left against medical advice (07) ==
LOC: ER 13:15
DX: I21.4 Non-ST elevation (NSTEMI) myocardial infarction (principal); I50.9 Heart failure, unspecified; Z79.899 Other long term (current) drug therapy
CPT/HCPCS: 80048; 83880; 85025; 84484; 36415; 71045; 94640; 93005; 96374; 99285; J1940; Z7610 ×4; A4606

== ENCOUNTER 2025-03-24 05:33 | Inpatient (IN) | payer BC ==
[~2025-03-24] VITALS: Ht 185.4 cm; Wt 121.6 kg
[2025-03-24 06:44] LABS: BASOPHILS % 0.6 % (0.0-2.0); EOSINOPHILS % 4.8 % (0.0-5.0); HEMATOCRIT. 51.0 % (42.0-52.0); HEMOGLOBIN. 16.3 g/dL (14.0-18.0); LYMPHOCYTES % 14.3 % (20.0-50.0); MEAN PLATELET VOLUME 8.9 fl (7.4-10.4); MONOCYTES % 9.9 % (2.0-8.0); NEUTROPHILS % 70.4 % (40.0-76.0); PLATELET 245 x1000/uL (130-400); RED BLOOD CELL COUNT 5.95 mill/uL (4.7-6.1); RED CELL DISTRIBUTION WIDTH 20.0 % (11.6-14.6)
[2025-03-24] MEDS: MORPHINE SULFATE 4 MG/ML INJ (FOR IV/IM USE) IV ONE (06:54)
[2025-03-24 07:12] LABS: CREATININE 1.9 mg/dL (0.6-1.3); UREA NITROGEN BLOOD 19 mg/dL (9-23)
[2025-03-24 07:19] LABS: TROPONIN I HIGH SENSITIVITY 530 ng/L (3.0-53)
[2025-03-24] MEDS ORDERED: ENOXAPARIN 100MG/ML SYR SUBCUT ONE (08:00)
[2025-03-24] MEDS ORDERED: MORPHINE SULFATE 4 MG/ML INJ (FOR IV/IM USE) IV ONE (08:00)
[2025-03-24] MEDS ORDERED: NALOXONE HCL 0.4MG/ML VIAL IV PRN (09:30)
[2025-03-24] MEDS: MORPHINE SULFATE 4 MG/ML INJ (FOR IV/IM USE) IV PRN (09:35)
[2025-03-24] MEDS ORDERED: DIPHENHYDRAMINE 50MG/ML VIAL IV PRN (09:45)
[2025-03-24] MEDS ORDERED: ONDANSETRON HCL 4MG/2ML INJ IV PRN (09:45)
[2025-03-24] MEDS ORDERED: ACETAMINOPHEN 325MG TABLET PO PRN ×2 (09:45)
[2025-03-24] MEDS ORDERED: CLONIDINE 0.1MG TABLET PO PRN (09:45)
[2025-03-24] MEDS ORDERED: ZOLPIDEM TARTRATE 5MG TABLET PO PRN (09:45)
[2025-03-24 09:58] VITALS: BP 121/85; PULSE 83; RESP 17; TEMP 36.4
[2025-03-24] MEDS ORDERED: NITROGLYCERIN 0.4MG TABLET SL SL PRN (11:00)
[2025-03-24] MEDS: SACUBITRIL/VALSARTAN 24MG/26MG TABLET PO SCH (11:23)
[2025-03-24] MEDS: PANTOPRAZOLE SODIUM 40 MG/VIAL IV SCH (11:23)
[2025-03-24] MEDS: SUCRALFATE 1G TABLET PO SCH (11:24)
[2025-03-24] MEDS: TICAGRELOR 90 MG TABLET PO SCH (11:24)
[2025-03-24 12:00] VITALS: BP 108/78; PULSE 82; RESP 23; TEMP 36.4; O2SAT 97
[2025-03-24] MEDS ORDERED: PNEUMOCOCCAL 20-VAL CONJ-DIP CRM 0.5ML IM ONE (12:00)
[2025-03-24 12:52] LABS: TROPONIN I HIGH SENSITIVITY 556 ng/L (3.0-53)
[2025-03-24] MEDS ORDERED: SODIUM CHLORIDE 0.9% 3ML FLUSH IVF SCH (14:00)
[2025-03-24 16:00] VITALS: BP 108/78; PULSE 80; RESP 18; TEMP 36.6; O2SAT 99
[2025-03-24] MEDS: MAGNESIUM/ALUMINUM HYDROXIDE/SIMETHICONE 30ML UDC PO PRN (16:32)
[2025-03-24 18:24] LABS: TROPONIN I HIGH SENSITIVITY 567 ng/L (3.0-53)
[2025-03-24 18:39] VITALS: BP 128/78; PULSE 80; TEMP 97.9; O2SAT 99
[2025-03-24] MEDS ORDERED: SUCR1TAB PO (18:39)
[2025-03-24] MEDS ORDERED: PROT40 MT (18:39)
[2025-03-24] MEDS ORDERED: CARVEDILOL 6.25 MG TABLET PO SCH (21:00)
[2025-03-24] MEDS ORDERED: ATORVASTATIN CALCIUM 40MG TABLET PO SCH (21:00)
[2025-03-25] MEDS ORDERED: ASPIRIN 81MG EC TABLET PO SCH (09:00)
== END 2025-03-24 19:05 | disposition home or self-care (01) | DRG 391 ==
LOC: ER 05:58 → EEVIPCON 07:38 → 3WST 07:38 → EDBEDREQ 07:39 → EDBEDREQTM 07:39 → ENRESERV 07:42
PROVIDERS: ADMIT Internal Medicine; ATTEND Internal Medicine
DX: K21.9 Gastro-esophageal reflux disease without esophagitis (principal); I21.4 Non-ST elevation (NSTEMI) myocardial infarction; I34.0 Nonrheumatic mitral (valve) insufficiency; I25.10 Atherosclerotic heart disease of native coronary artery without angina pectoris; E78.00 Pure hypercholesterolemia, unspecified; R07.89 Other chest pain; N40.0 Benign prostatic hyperplasia without lower urinary tract symptoms; Z96.652 Presence of left artificial knee joint; Z95.5 Presence of coronary angioplasty implant and graft; I25.2 Old myocardial infarction
CPT/HCPCS: 36415; 71045; 80048; 83880; 84484; 85025; 93005; 93306; 99291; J2270; J2470; J8499

== ENCOUNTER 2025-05-31 20:25 | Emergency (ER) | payer BC ==
[~2025-05-31] VITALS: Ht 188 cm; Wt 98.0 kg
[~2025-05-31 20:25] MED LIST changes: -ISOS30TA91 PO; +PROT40 MT; +SUCR1TAB PO
[2025-05-31 20:40] VITALS: O2SAT 95
[2025-05-31 21:32] LABS: BASOPHILS % 0.6 % (0.0-2.0); EOSINOPHILS % 5.7 % (0.0-5.0); HEMATOCRIT. 50.9 % (42.0-52.0); HEMOGLOBIN. 16.9 g/dL (14.0-18.0); LYMPHOCYTES % 26.3 % (20.0-50.0); MEAN PLATELET VOLUME 8.6 fl (7.4-10.4); MONOCYTES % 7.4 % (2.0-8.0); NEUTROPHILS % 60.0 % (40.0-76.0); PLATELET 199 x1000/uL (130-400); RED BLOOD CELL COUNT 5.91 mill/uL (4.7-6.1); RED CELL DISTRIBUTION WIDTH 17.5 % (11.6-14.6)
[2025-05-31 21:47] LABS: CREATININE 1.6 mg/dL (0.6-1.3); UREA NITROGEN BLOOD 14 mg/dL (9-23)
[2025-05-31 21:49] LABS: ASPARTATE AMINOTRANSFERASE 31 IU/L (<34)
[2025-05-31 21:50] LABS: BILIRUBIN DIRECT 0.2 mg/dL (<=3.0); BILIRUBIN TOTAL 0.5 mg/dL (0.1-1.0); PROTEIN TOTAL 6.9 g/dL (6.0-8.3)
[2025-05-31 21:51] LABS: TROPONIN I HIGH SENSITIVITY 561 ng/L (3.0-53)
[2025-05-31] MEDS: FUROSEMIDE 40MG/4ML VIAL IVP ONE ×2 (22:17→22:25)
[2025-05-31 22:51] VITALS: BP 135/99; PULSE 81; RESP 21; TEMP 36.5; O2SAT 97
== END 2025-05-31 22:56 | disposition home or self-care (01) ==
LOC: ER 20:31 → CMPBEDREQ 06-01 19:26
DX: E87.79 Other fluid overload (principal); I25.2 Old myocardial infarction; I50.9 Heart failure, unspecified; Z79.02 Long term (current) use of antithrombotics/antiplatelets; Z79.82 Long term (current) use of aspirin; Z79.84 Long term (current) use of oral hypoglycemic drugs; Z79.899 Other long term (current) drug therapy
CPT/HCPCS: 99284; 96374; 71045; 80076; 80048; 83880; 83735; 85025; 84484; 36415; J1938

== ENCOUNTER 2025-06-28 10:40 | Inpatient (IN) | payer BC ==
[~2025-06-28] VITALS: Ht 190.5 cm; Wt 112.6 kg
[2025-06-28 10:49] VITALS: O2SAT 96
[2025-06-28] MEDS: MORPHINE SULFATE 4 MG/ML INJ (FOR IV/IM USE) IV ONE (11:12)
[2025-06-28 11:14] LABS: BASOPHILS % 0.6 % (0.0-2.0); EOSINOPHILS % 2.6 % (0.0-5.0); HEMATOCRIT. 52.5 % (42.0-52.0); HEMOGLOBIN. 17.4 g/dL (14.0-18.0); LYMPHOCYTES % 17.1 % (20.0-50.0); MEAN PLATELET VOLUME 8.7 fl (7.4-10.4); MONOCYTES % 6.7 % (2.0-8.0); NEUTROPHILS % 73.0 % (40.0-76.0); PLATELET 211 x1000/uL (130-400); RED BLOOD CELL COUNT 5.98 mill/uL (4.7-6.1); RED CELL DISTRIBUTION WIDTH 18.2 % (11.6-14.6)
[2025-06-28 11:31] LABS: CREATININE 1.5 mg/dL (0.6-1.3); UREA NITROGEN BLOOD 19 mg/dL (9-23)
[2025-06-28 11:38] LABS: TROPONIN I HIGH SENSITIVITY 603 ng/L (3.0-53)
[2025-06-28] MEDS ORDERED: HYDROCODONE/ACETAMINOPHEN 5/325MG TABLET PO PRN (14:00)
[2025-06-28] MEDS ORDERED: NA PHOS,M-B/NA PHOS,DI-BA ENEMA 118ML PR PRN (14:00)
[2025-06-28] MEDS ORDERED: MAGNESIUM/ALUMINUM HYDROXIDE/SIMETHICONE 30ML UDC PO PRN (14:00)
[2025-06-28] MEDS ORDERED: ONDANSETRON HCL 4MG/2ML INJ IV PRN (14:00)
[2025-06-28] MEDS ORDERED: CLONIDINE 0.1MG TABLET PO PRN (14:00)
[2025-06-28] MEDS ORDERED: DOCUSATE SODIUM 100MG CAPSULE PO PRN (14:00)
[2025-06-28] MEDS ORDERED: GUAIFENESIN 200MG/10ML SUGAR FREE UDC PO PRN (14:00)
[2025-06-28] MEDS ORDERED: IPRATROPIUM/ALBUTEROL 0.5-3(2.5)MG/3ML NEB HHN PRN (14:00)
[2025-06-28] MEDS ORDERED: ACETAMINOPHEN 325MG TABLET PO PRN ×2 (14:00)
[2025-06-28] MEDS: FUROSEMIDE 40MG/4ML VIAL IV SCH (14:13)
[2025-06-28] MEDS: ASPIRIN 81MG EC TABLET PO SCH (14:13)
[2025-06-28] MEDS ORDERED: NALOXONE HCL 0.4MG/ML VIAL IV PRN (14:15)
[2025-06-28] MEDS ORDERED: IPRATROPIUM BROMIDE (0.02%) 0.5MG/2.5ML NEB HHN PRN (14:15)
[2025-06-28] MEDS ORDERED: NITROGLYCERIN 0.4MG TABLET SL SL PRN (14:15)
[2025-06-28] MEDS ORDERED: DEXTROSE 50% WATER 50ML SYRINGE IV PRN (14:15)
[2025-06-28 14:37] LABS: INR 1.1
[2025-06-28] MEDS ORDERED: IPRATROPIUM BROMIDE (0.02%) 0.5MG/2.5ML NEB HHN SCH (15:00)
[2025-06-28 15:03] LABS: PHOSPHORUS 3.1 mg/dL (2.5-4.9)
[2025-06-28 15:15] LABS: TROPONIN I HIGH SENSITIVITY 633 ng/L (3.0-53)
[2025-06-28 15:18] VITALS: BP 137/106; PULSE 82; RESP 20; TEMP 36.1956
[2025-06-28 16:00] VITALS: BP 137/106; PULSE 82; RESP 20; TEMP 36.2; O2SAT 96
[2025-06-28] MEDS: BLOOD SUGAR DIAGNOSTIC STRIP TEST SCH (17:00)
[2025-06-28] MEDS: INSULIN LISPRO 100 UNITS/ML SUBCUT SCH (17:29)
[2025-06-28 20:00] VITALS: BP 115/78; PULSE 79; RESP 17; TEMP 36; O2SAT 98
[2025-06-28] MEDS: ATORVASTATIN CALCIUM 40MG TABLET PO SCH (22:10)
[2025-06-28] MEDS: MORPHINE SULFATE 4 MG/ML INJ (FOR IV/IM USE) IV PRN (22:10)
[2025-06-28] MEDS: CARVEDILOL 6.25 MG TABLET PO SCH (22:10)
[2025-06-28] MEDS: ENOXAPARIN 30MG/0.3ML SYR SUBCUT SCH (22:12)
[2025-06-29] VITALS: BP 115/87; PULSE 74; RESP 22; TEMP 36.4; O2SAT 98
[2025-06-29 00:48] LABS: TROPONIN I HIGH SENSITIVITY 691 ng/L (3.0-53)
[2025-06-29 04:00] VITALS: BP 123/77; PULSE 74; RESP 17; TEMP 36.6; O2SAT 98
[2025-06-29 07:22] LABS: BASOPHILS % 0.7 % (0.0-2.0); EOSINOPHILS % 3.2 % (0.0-5.0); HEMATOCRIT. 51.5 % (42.0-52.0); HEMOGLOBIN. 17.2 g/dL (14.0-18.0); LYMPHOCYTES % 17.8 % (20.0-50.0); MEAN PLATELET VOLUME 9.0 fl (7.4-10.4); MONOCYTES % 10.3 % (2.0-8.0); NEUTROPHILS % 68.0 % (40.0-76.0); PLATELET 199 x1000/uL (130-400); RED BLOOD CELL COUNT 5.90 mill/uL (4.7-6.1); RED CELL DISTRIBUTION WIDTH 18.2 % (11.6-14.6)
[2025-06-29 07:23] LABS: CREATININE 1.4 mg/dL (0.6-1.3)
[2025-06-29 07:25] LABS: ASPARTATE AMINOTRANSFERASE 47 IU/L (<34); LDL CHOLESTEROL 115 mg/dL (5-100)
[2025-06-29 07:26] LABS: BILIRUBIN DIRECT 0.3 mg/dL (<=3.0); BILIRUBIN TOTAL 0.8 mg/dL (0.1-1.0); PHOSPHORUS 3.5 mg/dL (2.5-4.9)
[2025-06-29 07:27] LABS: T4 FREE 1.09 ng/dL (0.89-1.76); TRIGLYCERIDE 93 mg/dL (0-150); UREA NITROGEN BLOOD 17 mg/dL (9-23)
[2025-06-29 07:29] LABS: PROTEIN TOTAL 6.8 g/dL (6.0-8.3)
[2025-06-29 07:39] LABS: CLARITY URINE CLEAR (CLEAR); COLOR URINE YELLOW (YELLOW); GLUCOSE URINE NEGATIVE (NEGATIVE); KETONES URINE NEGATIVE (NEGATIVE); LEUKOCYTE ESTERASE URINE TRACE (NEGATIVE); NITRITE URINE NEGATIVE (NEGATIVE); OCCULT BLOOD URINE 1+ (NEGATIVE); PH URINE 5.0 (4.5-8.0); PROTEIN URINE 1+ (NEGATIVE); SPECIFIC GRAVITY URINE 1.015 (1.005-1.030); UROBILINOGEN URINE 0.2 E.U./dL (0.2-1.0)
[2025-06-29 07:44] LABS: TROPONIN I HIGH SENSITIVITY 696 ng/L (3.0-53)
[2025-06-29 07:48] LABS: SODIUM URINE RANDOM 63.0 mEq/L
[2025-06-29 07:55] LABS: *AMPHETAMINES SCREEN URINE NEGATIVE (NEGATIVE); *BARBITURATES SCREEN URINE NEGATIVE (NEGATIVE); *BENZODIAZEPINES SCREEN URINE NEGATIVE (NEGATIVE); *COCAINE SCREEN URINE NEGATIVE (NEGATIVE); CANNABINOID URINE SCREEN NEGATIVE (NEGATIVE); CREATININE URINE RANDOM 152.6 mg/dL; ECSTASY MDMA SCREEN URINE NEGATIVE (NEGATIVE); METHADONE URINE SCREEN NEGATIVE (NEGATIVE); OPIATES URINE SCREEN PRESUMPTIVE POSITIVE (NEGATIVE); OSMOLALITY URINE 501.0 mOsm/kg (500-850); PHENCYCLIDINE URINE SCREEN NEGATIVE (NEGATIVE); UREA NITROGEN URINE RANDOM 671.0 mg/dL
[2025-06-29 08:00] VITALS: BP 105/84; PULSE 81; RESP 21; TEMP 36.6; O2SAT 99
[2025-06-29 08:25] LABS: BACTERIA URINE 1+; SQUAMOUS EPITHELIAL CELL URINE NONE SEEN /lpf (RARE/1+); YEAST URINE NONE SEEN
[2025-06-29] MEDS: FAMOTIDINE 20MG/2ML VIAL IV SCH (08:40)
[2025-06-29] MEDS: EMPAGLIFLOZIN 10MG TABLET PO SCH (08:40)
[2025-06-29] MEDS: TICAGRELOR 90 MG TABLET PO SCH (08:40)
[2025-06-29] MEDS: FUROSEMIDE 40MG/4ML VIAL IV SCH (08:40)
[2025-06-29 08:41] VITALS: PULSE 81
[2025-06-29] MEDS: SACUBITRIL/VALSARTAN 24MG/26MG TABLET PO SCH (08:41)
[2025-06-29] MEDS ORDERED: METOPROLOL SUCCINATE 50MG ER TABLET PO SCH (09:00)
[2025-06-29] MEDS ORDERED: PANTOPRAZOLE SODIUM 40 MG/VIAL IV SCH (09:00)
[2025-06-29] MEDS ORDERED: LOSARTAN 25 MG TABLET PO SCH (09:00)
[2025-06-29] MEDS ORDERED: SPIRONOLACTONE 25MG TABLET PO SCH (09:30)
[2025-06-29] MEDS ORDERED: MORPHINE SULFATE 10 MG/ML INJ (NOT FOR IM USE) IV PRN (09:30)
== END 2025-06-29 10:00 | disposition left against medical advice (07) | DRG 280 ==
LOC: ER 10:40 → 3WST 12:52 → EDBEDREQTM 12:55 → EDBEDREQ 12:55 → 6WST 18:58 → 3WST 23:47
PROVIDERS: ADMIT Internal Medicine; ATTEND Internal Medicine
DX: I13.0 Hypertensive heart and chronic kidney disease with heart failure and stage 1 through stage 4 chronic kidney disease, or unspecified chronic kidney disease (principal); I50.23 Acute on chronic systolic (congestive) heart failure; I21.A1 Myocardial infarction type 2; N17.9 Acute kidney failure, unspecified; M62.82 Rhabdomyolysis; I27.20 Pulmonary hypertension, unspecified; N18.30 Chronic kidney disease, stage 3 unspecified; E11.22 Type 2 diabetes mellitus with diabetic chronic kidney disease; E78.5 Hyperlipidemia, unspecified; I25.10 Atherosclerotic heart disease of native coronary artery without angina pectoris; Z53.29 Procedure and treatment not carried out because of patient's decision for other reasons; N40.0 Benign prostatic hyperplasia without lower urinary tract symptoms; I25.2 Old myocardial infarction; Z79.82 Long term (current) use of aspirin; Z79.84 Long term (current) use of oral hypoglycemic drugs; Z82.49 Family history of ischemic heart disease and other diseases of the circulatory system; Z91.148 Patient's other noncompliance with medication regimen for other reason; Z95.5 Presence of coronary angioplasty implant and graft; Z79.899 Other long term (current) drug therapy
CPT/HCPCS: 36415; 71045; 80048; 80061; 80076; 80305; 81003; 82550; 82553; 82570; 82962; 83036; 83735; 83880; 83930; 83935; 84100; 84300; 84439; 84443; 84484; 84540; 85025; 87070; 93005; 96374; 99285; A4606; J1308; J1650; J1938; J2270; J8499

== ENCOUNTER 2025-06-29 16:40 | Inpatient (IN) | payer BC ==
[~2025-06-29] VITALS: Ht 190.5 cm; Wt 113.9 kg
[2025-06-29 17:48] LABS: BASOPHILS % 0.4 % (0.0-2.0); EOSINOPHILS % 2.2 % (0.0-5.0); HEMATOCRIT. 57.3 % (42.0-52.0); HEMOGLOBIN. 18.7 g/dL (14.0-18.0); LYMPHOCYTES % 16.2 % (20.0-50.0); MEAN PLATELET VOLUME 8.8 fl (7.4-10.4); MONOCYTES % 9.2 % (2.0-8.0); NEUTROPHILS % 72.0 % (40.0-76.0); PLATELET 243 x1000/uL (130-400); RED BLOOD CELL COUNT 6.42 mill/uL (4.7-6.1); RED CELL DISTRIBUTION WIDTH 18.1 % (11.6-14.6)
[2025-06-29 18:06] LABS: UREA NITROGEN BLOOD 17.0 mg/dL (9-23)
[2025-06-29 18:07] LABS: CREATININE 2.4 mg/dL (0.6-1.3)
[2025-06-29 18:08] LABS: TROPONIN I HIGH SENSITIVITY 726.0 ng/L (3.0-53)
[2025-06-29] MEDS ORDERED: ONDANSETRON HCL 4MG/2ML INJ IV PRN (19:00)
[2025-06-29] MEDS ORDERED: DEXTROSE 50% WATER 50ML SYRINGE IV PRN (19:00)
[2025-06-29] MEDS ORDERED: DOCUSATE SODIUM 100MG CAPSULE PO PRN (19:00)
[2025-06-29] MEDS ORDERED: ACETAMINOPHEN 325MG TABLET PO PRN (19:00)
[2025-06-29] MEDS ORDERED: IPRATROPIUM/ALBUTEROL 0.5-3(2.5)MG/3ML NEB HHN PRN (19:00)
[2025-06-29] MEDS ORDERED: MAGNESIUM/ALUMINUM HYDROXIDE/SIMETHICONE 30ML UDC PO PRN (19:00)
[2025-06-29] MEDS ORDERED: GUAIFENESIN 200MG/10ML SUGAR FREE UDC PO PRN (19:00)
[2025-06-29] MEDS ORDERED: CLONIDINE 0.1MG TABLET PO PRN (19:00)
[2025-06-29 21:00] VITALS: BP 110/79; PULSE 66; RESP 20; TEMP 36.5848
[2025-06-29 21:12] VITALS: BP 110/79; PULSE 66; RESP 20; TEMP 36.6; O2SAT 96
[2025-06-29] MEDS: SODIUM CHLORIDE 0.45% 250 ML IV ONE (21:27)
[2025-06-29] MEDS: SUCRALFATE 1G TABLET PO SCH (21:46)
[2025-06-29] MEDS: TICAGRELOR 90 MG TABLET PO SCH (21:46)
[2025-06-29] MEDS: ATORVASTATIN CALCIUM 40MG TABLET PO SCH (21:47)
[2025-06-30 00:28] VITALS: BP 100/79; PULSE 64; RESP 24; TEMP 36.8; O2SAT 96
[2025-06-30 01:11] LABS: TROPONIN I HIGH SENSITIVITY 663 ng/L (3.0-53)
[2025-06-30 03:55] VITALS: BP 108/76; PULSE 68; RESP 21; TEMP 36.8; O2SAT 96
[2025-06-30 05:55] LABS: BASOPHILS % 0.5 % (0.0-2.0); EOSINOPHILS % 2.9 % (0.0-5.0); HEMATOCRIT. 55.9 % (42.0-52.0); HEMOGLOBIN. 18.3 g/dL (14.0-18.0); LYMPHOCYTES % 17.3 % (20.0-50.0); MEAN PLATELET VOLUME 9.1 fl (7.4-10.4); MONOCYTES % 8.7 % (2.0-8.0); NEUTROPHILS % 70.6 % (40.0-76.0); PLATELET 216 x1000/uL (130-400); RED BLOOD CELL COUNT 6.32 mill/uL (4.7-6.1); RED CELL DISTRIBUTION WIDTH 18.1 % (11.6-14.6)
[2025-06-30 06:13] LABS: CREATININE 2.0 mg/dL (0.6-1.3); UREA NITROGEN BLOOD 18.0 mg/dL (9-23)
[2025-06-30 06:47] LABS: TROPONIN I HIGH SENSITIVITY 666.0 ng/L (3.0-53)
[2025-06-30] MEDS ORDERED: ASPIRIN 81MG TABLET PO SCH (09:00)
[2025-06-30] MEDS ORDERED: FAMOTIDINE 20MG/2ML VIAL IV SCH (09:00)
== END 2025-06-30 06:30 | disposition left against medical advice (07) | DRG 280 ==
LOC: ER 16:40 → EDBEDREQ 17:38 → ENRESERV 19:45 → 3WST 20:49
PROVIDERS: ADMIT Internal Medicine; ATTEND Internal Medicine
DX: I13.0 Hypertensive heart and chronic kidney disease with heart failure and stage 1 through stage 4 chronic kidney disease, or unspecified chronic kidney disease (principal); I50.23 Acute on chronic systolic (congestive) heart failure; I21.A1 Myocardial infarction type 2; N17.0 Acute kidney failure with tubular necrosis; E11.22 Type 2 diabetes mellitus with diabetic chronic kidney disease; I27.20 Pulmonary hypertension, unspecified; N18.30 Chronic kidney disease, stage 3 unspecified; E78.5 Hyperlipidemia, unspecified; I25.10 Atherosclerotic heart disease of native coronary artery without angina pectoris; N40.0 Benign prostatic hyperplasia without lower urinary tract symptoms; I95.9 Hypotension, unspecified; Z53.29 Procedure and treatment not carried out because of patient's decision for other reasons; Z79.82 Long term (current) use of aspirin; Z79.84 Long term (current) use of oral hypoglycemic drugs; Z82.49 Family history of ischemic heart disease and other diseases of the circulatory system; Z95.5 Presence of coronary angioplasty implant and graft; Z79.899 Other long term (current) drug therapy
CPT/HCPCS: 36415; 71045; 80048; 82550; 84484; 85025; 93005; 99285; A4606; J8499